=== PATIENT | female | born 1950 | race Caucasian/White ===

== ENCOUNTER 2017-08-04 10:21 | Outpatient (CLI) | payer MEDICARE, OTHER | END 2017-08-04 10:22 | disposition home or self-care (01) | LOC: SC 10:21 | PROVIDERS: ATTEND Internal Medicine Pulmonary Disease | DX: G47.33 Obstructive sleep apnea (adult) (pediatric) (principal) | CPT/HCPCS: 99203; G0463; 99212 ==

== ENCOUNTER 2017-09-24 20:31 | Outpatient (CLI) | payer MEDICARE, OTHER | END 2017-09-24 20:32 | disposition home or self-care (01) | LOC: SC 20:31 | PROVIDERS: ATTEND Internal Medicine Pulmonary Disease | DX: G47.33 Obstructive sleep apnea (adult) (pediatric) (principal); G47.61 Periodic limb movement disorder | CPT/HCPCS: 95810 ==

== ENCOUNTER 2017-10-28 14:12 | Outpatient (CLI) | payer MEDICARE, OTHER | END 2017-10-28 14:13 | disposition home or self-care (01) | LOC: SC 14:12 | PROVIDERS: ATTEND Nurse Practitioner Family | DX: G47.33 Obstructive sleep apnea (adult) (pediatric) (principal); G47.61 Periodic limb movement disorder | CPT/HCPCS: 99214; G0463; 99212 ==

== ENCOUNTER 2018-01-01 11:08 | Outpatient (CLI) | payer MEDICARE, OTHER | END 2018-01-01 11:09 | disposition home or self-care (01) | LOC: SC 11:08 | PROVIDERS: ATTEND Nurse Practitioner Family | DX: G47.33 Obstructive sleep apnea (adult) (pediatric) (principal) | CPT/HCPCS: 99214; G0463; 99212 ==

== ENCOUNTER 2018-02-03 10:10 | Outpatient (CLI) | payer MEDICARE, OTHER | END 2018-02-03 10:11 | disposition home or self-care (01) | LOC: SC 10:10 | PROVIDERS: ATTEND Nurse Practitioner Family | DX: G47.33 Obstructive sleep apnea (adult) (pediatric) (principal) | CPT/HCPCS: 99214; G0463; 99212 ==

== ENCOUNTER 2018-03-10 10:58 | Outpatient (CLI) | payer MEDICARE, OTHER | END 2018-03-10 10:59 | disposition home or self-care (01) | LOC: SC 10:58 | PROVIDERS: ATTEND Nurse Practitioner Family | DX: G47.33 Obstructive sleep apnea (adult) (pediatric) (principal) | CPT/HCPCS: 99214; G0463; 99212 ==

== ENCOUNTER 2018-06-11 11:13 | Outpatient (CLI) | payer MEDICARE, OTHER | END 2018-06-11 11:14 | disposition home or self-care (01) | LOC: SC 11:13 | PROVIDERS: ATTEND Nurse Practitioner Family | DX: G47.33 Obstructive sleep apnea (adult) (pediatric) (principal) | CPT/HCPCS: 99214; G0463; 99212 ==

== ENCOUNTER 2019-01-19 11:05 | Outpatient (CLI) | payer MEDICARE, OTHER ==
[2019-01-19 12:25] VITALS: BP 150/80
--- NOTE | 2019-01-19 12:25 | SLEEP CARE CONSULTATION ---
Information from patient questionnaire entered by Alexia Bedolla. I have reviewed and concur with the information entered by Alexia Bedolla. This document represents the service I personally performed and the decisions made by me, Mela Garcia, RN, MSN, [employer]. History of Present Illness Previous diagnosis: Mild, Obstructive Sleep Apnea-Hypopnea Syndrome AHI: 11.7 Reason for CPAP/BiPAP follow up: other (7 month ) Equipment type: CPAP Equipment obtained from: [employer] Mask style: Full face (Dreamwear) Mask brand: Respironics Backup mask available: Yes Last cushion change: 6 weeks ago HPI additional information: Since last seen, she has started sleeping in recliner since recovery from carpal tunnel surgery as it is more comfortable to keep hand elevated. The added benefit is she sleeps on her back and rare mask leaks. Her right hand is next to be done. Now her left hand has started to hurt again after increased use while helping a friend get their room in order after hospitalization. The bedtime alarm worked while she used it. CPAP Compliance Data - Data Reviewed with Patient Average duration of nightly device use: 7.1 Compliance rate %: 85.0 (180 days) Current pressure setting (cmH2O): 18-20 Humidity settin Heated hose settin Average residual AHI: 3.8 Average large leak: 4 mins 7 secs Subjective Missed days of use due to: reports: illness Patient concerns: reports: nasal congestion (seasonal only and does not interfere with use of CPAP ). denies: aerophagia, mask discomfort, air blowing in eyes, mask leak noise, condensation in mask/hose, dry mouth, nose, throat, epistaxis Observed to snore while using device: No (sleeps alone) Current pressure setting perceived as: comfortable On therapy, patient: reports: sleeping better ( with pressure increase), awakening more refreshed, being more awake and alert during the day, more rested overall. denies: drowsiness while driving Initial [place] Sleepiness Scale score: 6 Current [place] Sleepiness Scale score: 4 Allergies and Home Medications Known drug allergies: No Home medication list reviewed: Yes Allergy and home medication list: Amlodipine-Atorvastatin 10-20mg tab one daily Desvenlafaxine HCI XR 50 mg tab one daily with food Zyrtec 10mg as needed Review of Systems Review of systems same as previous: No (left carpal tunnel completed September, with right wrist planned next. ) Physical Exam Blood Pressure: 150/80 (monitors at home / has guidelines to report for adjustment of meds) Cuff size: regular Heart Rate: 90 O2 Saturation: 96 Weight: 154 lb 12.8 oz Weight change since last visit: gained 4 pounds Impression and Plan 1. Obstructive Sleep Apnea-Hypopnea Syndrome, mild, with good treatment compliance and good apnea control. On CPAP therapy, the patient has better sleep quality and is more rested overall especially since pressure adjusted at last visit. Patient has only fallen asleep on couch a couple of times, If continues, she is advised to resume the couch alarm. She does not like to be on the [employer] supply call reminder system so I reviewed the supply replacement handout given so patient can call when needs equipment and covered by insurance. She has gained weight. If continued weight gain, her apnea risk and pressure requirements can increase. She would like to lose about 10 pounds which will bring her back into healthy weight. The goal is to lose the belly fat which increases overall health risks. Patient's apnea severity and rationale for treatment to reduce apnea, improve sleep quality and reduce cardiovascular and cerebrovascular events was reviewed. I also reviewed the benefit of consistent device use of CPAP for her hypertension. Since her apnea is more severe supine, if unable to use CPAP, she is advised to avoid supine sleep by pillow positioning. Continue auto CPAP pressure at 18-19 cm H2O. Notify me if snoring with the mask or feeling that the pressure is too much or too little. Attempt to lose weight. Follow up with orthopedist for hand concerns. Return for follow-up in one year, or sooner if concerns arise. I spent 100% of this 30 minute visit face to face with the patient with greater than 50% of this was spent time counseling the patient and coordination of care.
== END 2019-01-19 11:06 | disposition home or self-care (01) ==
LOC: SC 11:05
PROVIDERS: ATTEND Nurse Practitioner Family
DX: G47.33 Obstructive sleep apnea (adult) (pediatric) (principal)
CPT/HCPCS: 99214; G0463; 99212

== ENCOUNTER 2019-06-15 10:03 | Outpatient (CLI) | payer MEDICARE ==
--- NOTE | 2019-06-15 14:39 | Mammography Report ---
Reason: ROUTINE MAMMO Procedure Date: 06/15/2019 Accession Number: [id number] / [id number] Procedure: [facility] - Screening Mammo w/Nolan CPT Code: Final Report FULL RESULT: EXAM: Screening Mammo w/Nolan DATE: 06/15/2019 11:13 AM CLINICAL HISTORY: Screening encounter. New baseline exam. TECHNIQUE: (B) - Bilateral CC and MLO views were obtained. COMPARISON: None PARENCHYMAL PATTERN: (A) - The breast(s) demonstrate(s) scattered fibroglandular densities. FINDINGS: In the left medial breast at the 9:00 position 6.5 cm from the nipple is a 1 cm ovoid isodense relatively well-circumscribed nodule which should be further characterized by ultrasound unless prior imaging demonstrating greater than two-year stability can be made available for comparison. There are no suspicious masses, calcifications, or areas of distortion of the right breast. IMPRESSION: Incomplete examination. BI-RADS category 0. RECOMMENDATION: (ADDUS) - Targeted ultrasound recommended. Left breast. BI-RADS CATEGORY: (0) - Incomplete Examination - need additional evaluation. STANDARD QUALIFYING STATEMENTS: 1. This examination was not reviewed with the aid of Computer-Aided Detection (CAD). 2. A negative or benign imaging report should not preclude biopsy if clinically suspicious findings are present. 3. Dense breasts may obscure an underlying neoplasm. 4. This examination was reviewed with the aid of 3D breast imaging (tomosynthesis).
== END 2019-06-15 10:04 | disposition home or self-care (01) ==
LOC: DI 10:03
PROVIDERS: ATTEND Internal Medicine
DX: Z12.31 Encounter for screening mammogram for malignant neoplasm of breast (principal)
CPT/HCPCS: 77063; 77067

== ENCOUNTER 2019-06-21 11:37 | Outpatient (CLI) | payer MEDICARE, OTHER ==
--- NOTE | 2019-06-21 15:59 | Ultrasound Report ---
Reason: ABNORMAL MAMMOGRAM Procedure Date: 06/21/2019 Accession Number: [id number] / [id number] Procedure: US - Breast Unilateral Limited CPT Code: Final Report FULL RESULT: EXAM: Breast Unilateral Limited DATE: 06/21/2019 12:34 PM CLINICAL HISTORY: ABNORMAL MAMMOGRAM 06/15/2019. Patient states that she has had an abnormality in the left breast followed in the past and was told it was benign. COMPARISON: Prior mammograms are greater than 10 years ago and are unavailable for comparison.. TECHNIQUE: Targeted ultrasound was performed of the left breast in the area of clinical concern at 9:00 o'clock and 5 cm distance from the nipple. Color Doppler was employed as appropriate. FINDINGS: Corresponding to the mammographic finding is a 6 x 5 x 6 mm avascular well-circumscribed hypoechoic mass with possible calcification. There is an adjacent 6 mm coarse calcification similar to the mammogram. IMPRESSION: Probable benign findings left breast. RECOMMENDATION: Recommend diagnostic left mammogram and ultrasound in 6 months. BIRADS CATEGORY 3 probably benign Discussed with the patient. [facility]
== END 2019-06-21 11:38 | disposition home or self-care (01) ==
LOC: DI 11:37
PROVIDERS: ATTEND Internal Medicine
DX: R92.8 Other abnormal and inconclusive findings on diagnostic imaging of breast (principal)
CPT/HCPCS: 76642